=== PATIENT | female | born 1980 | race Caucasian/White ===

== ENCOUNTER 2019-08-06 14:03 | Emergency (ER) | payer OTHER, MEDICAID, SELFPAY ==
[2019-08-06 14:06] VITALS: BP 174/87; PULSE 88; RESP 15; TEMP 36.8; O2SAT 97; BMI 25.0
--- NOTE | 2019-08-06 14:10 | DI.RAD.S_ITS ---
PROCEDURE: XR RIBS RT MIN 3V W CXR 1V INDICATIONS: rib pain TECHNIQUE: 2 views of the right ribs were acquired, along with a single view chest. COMPARISON: None. FINDINGS: Surgical changes and devices: None. Bones and chest wall: No fractures or dislocations. No suspicious bony lesions. Overlying soft tissues appear unremarkable. Lungs and pleura: No pleural effusions or pneumothorax. Lungs appear clear. Mediastinum: Mediastinal contours appear normal. Heart size is normal. IMPRESSION: No obvious displaced rib fracture. No acute cardiopulmonary pathology. Dictated by: Alexis Wynn M.D. on 08/06/2019 at 14:32 Approved by: Alexis Wynn M.D. on 08/06/2019 at 14:32
[2019-08-06 14:30] LABS: Add Manual Diff / Slide Review NO; Basophils Absolute Auto 100 /uL (0-100); Basophils Percent Auto 1.2 % (0-2); Eosinophils Absolute Auto 100 /uL (0-450); Eosinophils Percent Auto 1.1 % (2-4); Hematocrit 40.6 % (36-46); Hemoglobin 14.3 g/dL (12.0-16.0); Lymphocytes Absolute Auto 2600 /uL (1100-4500); Lymphocytes Percent Auto 30.8 % (25-40); Mean Corpuscular HGB Conc 35.2 % (30-36); Mean Corpuscular Hemoglobin 33.3 PG (26-34); Mean Corpuscular Volume 94.4 fL (80-100); Monocytes Absolute Auto 400 /uL (0-900); Monocytes Percent Auto 5.4 % (3-14); Neutrophils Absolute Auto 5100 /uL (1500-7000); Neutrophils Percent Auto 61.5 % (50-75); Platelet Count 255 X10^3/uL (150-400); Red Cell Distribution Width 13.7 % (11.6-14.8); White Blood Cell Count 8.3 X10^3/uL (4.5-11.0)
[2019-08-06 14:36] LABS: INR 0.9 (0.9-1.3); Prothrombin Time 10.8 SECONDS (10.1-12.7)
[2019-08-06 14:38] LABS: PTT Partial Thromboplastin Tim 37 SECONDS (26.4-36.2)
[2019-08-06 14:50] LABS: Alanine Aminotransferase 52 IU/L (9-52); Albumin Globulin Ratio 1.5 (1.0-2.8); Alkaline Phosphatase 56 U/L (38-126); Aspartate Aminotransferase 43 IU/L (15-46); BUN Creatinine Ratio 21.7 (6-22); Bilirubin Total 0.9 mg/dL (0.2-1.3); Blood Urea Nitrogen 13 mg/dL (7-17); Calcium 9.3 mg/dL (8.4-10.2); Carbon Dioxide 25 mmol/L (22-32); Chloride 103 mmol/L (98-107); Estimated Glomerular Filt Rate > 60.0 mL/min (>60); Globulin 3.3 g/dL (1.7-4.1); Glucose 96 mg/dL (70-100); HEMOLYSIS < 15 (0-50); Lipase 134 U/L (23-300); Potassium 3.9 mmol/L (3.4-5.1); Sodium 137 mmol/L (137-145); Total Protein 8.3 g/dL (6.3-8.2)
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
--- NOTE | 2019-08-06 15:26 | DI.US.S_ITS ---
PROCEDURE: US ABDOMEN LIMITED INDICATIONS: RIGHT UPPER QUADRANT AND RIB PAIN TECHNIQUE: Real-time focused scanning was performed of the abdomen, with image documentation. COMPARISON: None. FINDINGS: Liver unremarkable and measures 15.1 cm in length. Gallbladder is normal. no sonographic Salas sign. No biliary dilatation. Pancreas obscured by shadowing bowel gas. Spleen unremarkable and measures 10.5 cm in length. IVC patent IMPRESSION: Unremarkable appearance of the gallbladder. Of note, pancreas obscured by shadowing bowel gas and therefore not sonographically evaluated. Dictated by: Troy Lilly M.D. on 08/06/2019 at 16:54 Approved by: Troy Lilly M.D. on 08/06/2019 at 16:56
[2019-08-06 15:40] LABS: D Dimer 337 ng/mL (<230)
--- NOTE | 2019-08-06 15:55 | DI.CT.S_ITS ---
PROCEDURE: CT ANGIO CHEST PE PROTOCOL INDICATIONS: R. CP, elevated d dimer TECHNIQUE: After the administration of intravenous contrast, 2 mm thick sections acquired from the pulmonary apices to the posterior costophrenic angles. 3-dimensional maximum intensity projection (MIP) coronal and sagittal reformats were then acquired through the thorax. For radiation dose reduction, the following was used: automated exposure control, adjustment of mA and/or kV according to patient size. COMPARISON: None. FINDINGS: Image quality: Excellent. Pulmonary arteries: Pulmonary arteries are normal in size, and demonstrate no intraluminal filling defects to suggest central pulmonary embolism. Lungs and pleura: Mild bilateral sub-pleural cystic change. Mild bibasilar dependent change. The No pleural effusions or pneumothorax. Central and peripheral airways are patent. Mediastinum: Heart size is normal, without pericardial effusion. No mediastinal or hilar adenopathy. Mildly prominent right perihilar lymph node. Thoracic aorta is normal in caliber and enhancement. Esophagus is normal in caliber, without hiatal hernia. Bones and chest wall: No suspicious bony lesions. Ribs and thoracic spine appear intact throughout. Thyroid gland is unremarkable. No axillary or supraclavicular adenopathy. Abdomen: Hepatomegaly. Focal fatty replacement of the liver near the ligamentum teres. Gallbladder is unremarkable. IMPRESSION: 1. No evidence of pulmonary emboli. 2. Hepatomegaly. Dictated by: Smith Durbin M.D. on 08/06/2019 at 16:55 Approved by: Smith Durbin M.D. on 08/06/2019 at 16:58
[2019-08-06 17:30] VITALS: BP 152/78; PULSE 48; RESP 23; O2SAT 100
[2019-08-06] MEDS: SODIUM CHLORIDE 0.9% 1,000 ML 1000 ML IV (17:37)
== END 2019-08-06 18:34 | disposition home or self-care (01) ==
PROVIDERS: Emergency Medicine; Emergency Provider Internal Medicine
DX: R07.81 Pleurodynia (principal); R10.11 Right upper quadrant pain; F10.10 Alcohol abuse, uncomplicated; V43.92XD Unspecified car occupant injured in collision with other type car in traffic accident, subsequent encounter
CPT/HCPCS: 36415; 71101; 71275; 76705; 80053; 81003; 81025; 83690; 85025; 85379; 85610; 85730; 99282; 99284; Q9967

== ENCOUNTER 2021-03-14 18:58 | Emergency (ER) | payer OTHER, MEDICAID, SELFPAY ==
[2021-03-14] VITALS (9 sets, daily range): BP systolic 127–204; BP diastolic 75–102; PULSE 87–121; RESP 19–25; TEMP 37.2; O2SAT 94–96; BMI 29.0
[2021-03-14] MEDS: ONDANSETRON 4 MG/2 ML INJ (19:22)
--- NOTE | 2021-03-14 19:57 | PC.NURSE ---
Reports reaction after eating shrimp Saturday, hives/itchy increased after scallops Saturday. Denies difficulty breathing/swallowing. Also concerned about alcohol withdrawal. Drinks a fifth a day. Visible tremors/sweaty.
--- NOTE | 2021-03-14 20:07 | ED.ALLEREA ---
HPI - Allergic Reaction General Chief complaint: Allergic Reaction Stated complaint: hives all over her body, shakey Time Seen by Provider: 03/14/21 19:04 Source: patient Mode of arrival: Ambulatory Limitations: no limitations History of Present Illness HPI narrative: 40-year-old female smoker presents with a supposed allergic reaction after eating shrimp few days ago. She has widespread redness, itching and hives but denies any swelling of tongue, lip, throat. She has had no trouble swallowing and no trouble breathing. She denies any abdominal pain or diarrhea. She has had no fever or chills and denies any new medications or other possible exposures. She does state that she drinks heavily daily and has no intention of quitting but did quit cold turkey a few days ago and is feeling a bit shakey. She denies any auditory or visual hallucinations. She is awake, alert and oriented and states that she intends to start drinking again later tonight. She understands of severe alcohol withdrawal can be but does not wish for any help with it currently. MD complaint: allergic reaction and hives Onset (ago): day(s) Exposure: food Symptoms: rash and itching Severity: moderate Treatment prior to arrival: none Previous Allergic Reaction History: none Related Data Previous Rx's Medication Instructions Recorded prednisone 20 mg PO DAILY #5 tab 03/14/21 Allergies Allergy/AdvReac Type Severity Reaction Status Date / Time No Known Drug Allergies Allergy Verified 08/06/19 14:05 Review of Systems Constitutional Constitutional: Denies chills, Denies fatigue, Denies fever(s), Denies frequent falls, Denies lethargy and Denies weakness Eyes Eyes: Denies change in vision, Denies eye discharge, Denies irritation and Denies loss of vision ENT Ears, Nose, Mouth, and Throat: Denies change in voice, Denies dizziness, Denies neck pain, Denies sore throat and Denies throat swelling Cardiovascular Cardiovascular: Denies chest pain, Denies irregular heart rhythm, Denies lightheadedness, Denies palpitations, Denies dyspnea, Denies dyspnea on exertion and Denies orthopnea Respiratory Respiratory: Denies cough, Denies dyspnea, Denies dyspnea on exertion and Denies wheezing Gastrointestinal Gastrointestinal: Denies abdominal pain, Denies change in bowel habits, Denies diarrhea, Denies nausea and Denies vomiting Musculoskeletal Musculoskeletal: Denies neck pain and Denies numbness Integumentary/Breasts Skin/Breast: Reports pruritus, Reports erythema, Reports rash and Denies wounds Neurologic Neurologic: Denies behavioral changes, Denies confusion, Denies dizziness, Denies frequent falls, Denies loss of vision, Denies numbness and Denies weakness Psychiatric Psychiatric: Denies anxiety, Denies behavioral changes, Denies confusion, Denies depression, Denies homicidal ideation and Denies suicidal ideation Endocrine Endocrine: Denies fatigue, Denies flushing and Denies palpitations Hematologic/Lymphatic Hematologic/Lymphatic: Denies easy bruising Allergic/Immunologic Allergic/Immunologic: Denies urticaria, Denies throat swelling and Denies wheezing Patient History Medical History Eczema Surgical History Status post ORIF of fracture of ankle Social History Smoking Status: Current every day smoker Smoking Status: Current every day smoker tobacco type: cigarettes alcohol intake frequency: 3 or more drinks per day Alcohol type: hard liquor Substance Use Type: marijuana Exam Narrative Exam Narrative: GENERAL: [40] year old patient appears stated age. Well-nourished, well-developed patient, in mild distress. A bit anxious and tremulous, alert and oriented, GCS 15 HEAD: Atraumatic. Normocephalic. EYES: Pupils equal round and reactive. Extraocular motions intact. No scleral icterus. No injection or drainage. ENT: Nose without bleeding, purulent drainage. Throat without erythema, tonsillar hypertrophy or exudate. Airway patent. NECK: Trachea midline. Non tender CARDIOVASCULAR: Regular rate and rhythm without murmurs, gallops, or rubs. RESPIRATORY: Clear to auscultation. Breath sounds equal bilaterally. No wheezes, rales, or rhonchi. GASTROINTESTINAL: Abdomen soft, non-tender, nondistended. EXTREMITIES: No edema or joint tenderness. BACK: Nontender without deformity or crepitance. No flank tenderness. NEURO: AOx3. SKIN: Widespread erythematous, pruritic maculopapular rash Initial Vital Signs Initial Vital Signs: Vital Signs Temperature 98.9 F 03/14/21 19:05 Pulse Rate 121 H 03/14/21 19:05 Respiratory Rate 24 03/14/21 19:05 Blood Pressure 148/102 H 03/14/21 19:05 Pulse Oximetry 95 03/14/21 19:05 Course Orders Ordered: ED Orders 03/14/21 19:15 Complete Blood Count AUTO DIFF Stat Comprehensive Metabolic Panel Stat Discontinued Medications Diphenhydramine HCl (Diphenhydramine 50 Mg/Ml Vial) 50 mg IV NOW ONE Stop: 03/14/21 20:52 Last Admin: 03/14/21 21:01 Dose: 50 mg Documented by: LIONEL Sodium Chloride (Normal Saline 0.9%) 1,000 mls @ 1,000 mls/hr IV BOLUS ONE Stop: 03/14/21 21:06 Last Infusion: 03/14/21 21:43 Dose: 0 mls/hr Documented by: Admin: 03/14/21 20:16 Dose: 1,000 mls/hr Documented by: ROMERO Famotidine (Pepcid) 20 mg in 50 mls @ 200 mls/hr IV NOW ONE Stop: 03/14/21 21:05 Last Infusion: 03/14/21 21:16 Dose: 0 mls/hr Documented by: Admin: 03/14/21 21:01 Dose: 200 mls/hr Documented by: LIONEL Methylprednisolone (Methylprednisolone 125 Mg/2 Ml Vial) 125 mg IV NOW ONE Stop: 03/14/21 20:52 Last Admin: 03/14/21 21:02 Dose: 125 mg Documented by: LIONEL Reevaluation(s) Reevaluation #1: Patient has significant improvement symptoms after above-stated therapies Vital Signs Vital signs: Vital Signs - 8 hr 03/14/21 19:05 03/14/21 19:20 03/14/21 19:30 Temperature 98.9 F Pulse Rate 121 H 95 H 95 H Respiratory Rate 24 22 Blood Pressure 148/102 H 138/90 Pulse Oximetry 95 96 95 03/14/21 20:00 03/14/21 20:30 03/14/21 21:00 Temperature Pulse Rate 93 H 96 H 96 H Respiratory Rate 21 21 25 H Blood Pressure 127/84 132/86 134/75 Pulse Oximetry 94 94 94 03/14/21 21:26 03/14/21 21:30 03/14/21 21:31 Temperature Pulse Rate 95 H 87 89 Respiratory Rate 20 21 19 Blood Pressure 204/91 H 147/75 H Pulse Oximetry 96 96 96 MDM - Allergic Reaction Lab Data Result diagrams: 03/14/21 19:15 03/14/21 19:15 Labs: Lab Results 03/14/21 03/14/21 Range/Units 19:15 19:15 WBC 12.3 H (4.5-11.0) X10^3/uL RBC 4.68 (4.0-5.2) X10^6/uL Hgb 15.6 (12.0-16.0) g/dL Hct 45.7 (36-46) % MCV 97.6 (80-100) fL MCH 33.3 (26-34) PG MCHC 34.2 (30-36) % RDW 17.2 H (11.6-14.8) % Plt Count 227 (150-400) X10^3/uL Neut % (Auto) 83.3 H (50-75) % Lymph % (Auto) 13.4 L (25-40) % [place] % (Auto) 2.7 L (3-14) % Eos % (Auto) 0.1 L (2-4) % Baso % (Auto) 0.5 (0-2) % Neut # (Auto) 91252 H (6134-3902) /uL Lymph # (Auto) 1600 (8712-4783) /uL [place] # (Auto) 300 (0-900) /uL Eos # (Auto) 0 (0-450) /uL Baso # (Auto) 100 (0-100) /uL Sodium 135 L (137-145) mmol/L Potassium 3.3 L (3.4-5.1) mmol/L Chloride 97 L (98-107) mmol/L Carbon Dioxide 24 (22-32) mmol/L BUN 15 (7-17) mg/dL Creatinine 0.55 (0.52-1.04) mg/dL Estimated GFR > 60.0 (>60) mL/min BUN/Creatinine Ratio 27.3 H (6-22) Glucose 133 H (70-100) mg/dL Calcium 10.0 (8.4-10.2) mg/dL Total Bilirubin 1.2 (0.2-1.3) mg/dL AST 46 H (14-36) IU/L ALT 44 H (<35) IU/L Alkaline Phosphatase 66 (38-126) U/L Total Protein 7.6 (6.3-8.2) g/dL Albumin 4.7 (3.5-5.0) g/dL Globulin 2.9 (1.7-4.1) g/dL Albumin/Globulin Ratio 1.6 (1.0-2.8) Urine Dip Bedside Urine Glucose Negative Bedside Urine Bilirubin - Negative Bedside Urine Ketone +++ 80 Urine Specific [place] 1.015 Bedside Urine Occult Blood - Negative Bedside Urine pH 8.0 Bedside Urine Protein + 30 Bedside Urine Urobilinogen - Negative Bedside Urine Nitrite - Negative Bedside Urine Leukocytes - Negative Esterase MDM Narrative Medical decision making narrative: Patient with allergic type symptoms after exposure to shrimp for which she think she has an allergy. No signs of anaphylaxis, no tongue, lip or throat swelling and no trouble breathing. She has significant improvement after above-stated therapies. She does show mild symptoms of withdrawal but refuses to pursue or discuss this, wants no help in the form of benzos or other therapies stating that she intends to start drinking and tonight. She does understand that quitting without the help of a medical provider can be life-threatening. She has been given return precautions and has had questions answered to her apparent satisfaction Discharge Plan Departure Patient Disposition: Home Clinical Impression: Allergic reaction Qualifiers: Encounter type: initial encounter Qualified Code(s): T78.40XA - Allergy, unspecified, initial encounter Instructions: DI for General Allergic Reactions Activity Restrictions/Additional Instructions: *You have been diagnosed with [allergic reaction] *What to do: *Please continue to take your regular medications as directed. [x ] New medication prescriptions sent to your pharmacy: [[facility] ] [x ] New Over the Counter medication as described including Benadryl and Pepcid to help with redness and itching [ ] No new medications given *Please follow up with your primary care provider in 2-3 days, call for an appointment. Let them know you were seen in the Emergency Department and that we ask that you be seen in follow up. We will electronically transmit a record of today's note if your PCP is in our system *If you do not have a primary care provider please contact the [facility] Resource line at [phone]. They will ask some questions about your medical history and help get you set up with a doctor in the community. *Return to Emergency Department if you should have any new, worsening or concerning symptoms, such as [fever greater than 101 F, shaking chills, worsening pain, persistent vomiting or other bothersome symptoms] Prescriptions: New prednisone 20 mg tablet 20 mg PO DAILY Qty: 5 RF: 0
[2021-03-14] MEDS: SODIUM CHLORIDE 0.9% 1,000 ML 1000 ML IV (20:16)
[2021-03-14 20:17] LABS: Add Manual Diff / Slide Review NO; Basophils Absolute Auto 100 /uL (0-100); Basophils Percent Auto 0.5 % (0-2); Eosinophils Absolute Auto 0 /uL (0-450); Eosinophils Percent Auto 0.1 % (2-4); Hematocrit 45.7 % (36-46); Hemoglobin 15.6 g/dL (12.0-16.0); Lymphocytes Absolute Auto 1600 /uL (1100-4500); Lymphocytes Percent Auto 13.4 % (25-40); Mean Corpuscular HGB Conc 34.2 % (30-36); Mean Corpuscular Hemoglobin 33.3 PG (26-34); Mean Corpuscular Volume 97.6 fL (80-100); Monocytes Absolute Auto 300 /uL (0-900); Monocytes Percent Auto 2.7 % (3-14); Neutrophils Absolute Auto 10200 /uL (1500-7000); Neutrophils Percent Auto 83.3 % (50-75); Platelet Count 227 X10^3/uL (150-400); Red Blood Cell Count 4.68 X10^6/uL (4.0-5.2); Red Cell Distribution Width 17.2 % (11.6-14.8); White Blood Cell Count 12.3 X10^3/uL (4.5-11.0)
[2021-03-14 20:23] LABS: Alanine Aminotransferase 44 IU/L (<35); Albumin 4.7 g/dL (3.5-5.0); Albumin Globulin Ratio 1.6 (1.0-2.8); Alkaline Phosphatase 66 U/L (38-126); Aspartate Aminotransferase 46 IU/L (14-36); BUN Creatinine Ratio 27.3 (6-22); Bilirubin Total 1.2 mg/dL (0.2-1.3); Blood Urea Nitrogen 15 mg/dL (7-17); Carbon Dioxide 24 mmol/L (22-32); Chloride 97 mmol/L (98-107); Estimated Glomerular Filt Rate > 60.0 mL/min (>60); Globulin 2.9 g/dL (1.7-4.1); Glucose 133 mg/dL (70-100); HEMOLYSIS < 15 (0-50); Potassium 3.3 mmol/L (3.4-5.1); Sodium 135 mmol/L (137-145); Total Protein 7.6 g/dL (6.3-8.2)
[2021-03-14] MEDS: FAMOTIDINE 20 MG/50 ML PIGGYBACK 200 MG IV (21:01)
[2021-03-14] MEDS: diphenhydrAMINE 50 MG/ML VIAL IV (21:01)
[2021-03-14] MEDS: methylPREDNISolone 125 MG/2 ML VIAL IV (21:02)
== END 2021-03-14 21:53 | disposition home or self-care (01) ==
PROVIDERS: Emergency Provider Emergency Medicine
DX: L50.9 Urticaria, unspecified (principal); T78.40XA Allergy, unspecified, initial encounter
CPT/HCPCS: 36415; 80053; 81003; 85025; 96361; 96374; 96375; 99284; J1200; J2405; J2930

== ENCOUNTER 2022-04-30 08:22 | Inpatient (IN) | payer OTHER, MEDICAID, SELFPAY ==
[2022-04-30] VITALS (17 sets, daily range): BP systolic 157–206; BP diastolic 99–131; PULSE 60–99; RESP 16–28; TEMP 36.2–37.7; O2SAT 90–99; BMI 37.7
--- NOTE | 2022-04-30 08:29 | DI.RAD.S_ITS ---
PROCEDURE: XR CHEST 1V INDICATIONS: chest pain TECHNIQUE: One view of the chest was acquired. COMPARISON: None. FINDINGS: Surgical changes and devices: None. Lungs and pleura: Lung volumes are low. There is diffuse interstitial prominence. No pleural effusion or pneumothorax. Mediastinum: Mediastinal contours appear normal. Heart size is normal. Bones and chest wall: No suspicious bony lesions. Overlying soft tissues appear unremarkable. IMPRESSION: Low lung volumes and interstitial prominence suggesting pulmonary edema. Dictated by: Ximena Oseguera M.D. on 04/30/2022 at 10:22 Approved by: Ximena Oseguera M.D. on 04/30/2022 at 10:22
--- NOTE | 2022-04-30 08:31 | ED.ABDPAIN ---
HPI - Abdominal Pain General Chief Complaint: Abdominal Pain Stated Complaint: pancreas Time Seen by Provider: 04/30/22 08:25 History of Present Illness HPI narrative: Patient is a 41-year-old female history of pancreatitis she is an alcoholic however she says she only had 1 beer 2 days ago. Yesterday she was doing well however this morning woke up with severe epigastric pain. She is diaphoretic and vomiting. He says this feels like her previous episode of pancreatitis. She has no history of gallbladder issues. Related Data Home Medications Medication Instructions Recorded Confirmed No Known Home Medications 04/30/22 04/30/22 Allergies Allergy/AdvReac Type Severity Reaction Status Date / Time shellfish derived Allergy Verified 04/30/22 11:54 Review of Systems Review of Systems Narrative: GENERAL: Denies chills, fatigue, malaise, fever, sweats, travel HEENT: Denies sinus pain, ear pain, sore throat, difficulty swallowing, neck pain RESPIRATORY: Denies dyspnea, cough, wheezing, hemoptysis, sputum. CARDIOVASCULAR: Denies chest pain, palpitations, orthopnea, edema GASTROINTESTINAL: See HPI : Denies dysuria, frequency, incontinence, hematuria, urinary retention, flank pain. MUSCULOSKELETAL: Denies weakness, joint pain, or bony pain SKIN: No rash, no erythema, no pruritus NEUROLOGIC: Denies weakness, dizziness, headache, numbness, change in speech, confusion PSYCHIATRIC: No concerning psychosocial issues. 12 point review of systems is negative except for those stated above and HPI Patient History Medical History Eczema Surgical History Status post ORIF of fracture of ankle Social History household members: significant other Smoking Status: Current every day smoker Smoking Status: Current every day smoker tobacco type: cigarettes alcohol intake frequency: 3 or more drinks per day Alcohol type: hard liquor Substance Use Type: marijuana Exam Initial Vital Signs Initial Vital Signs: Vital Signs Pulse Rate 99 H 04/30/22 08:26 Pulse Oximetry 97 04/30/22 08:26 GENERAL: Alert 41-year-old female diaphoretic appears in severe pain dry heaving and in no acute distress. HEENT: Head atraumatic,EOMI, pupils reactive, face symmetric, moist mucous membranes CARDIOVASCULAR: Regular rate and rhythm without murmurs, rubs or gallops. RESPIRATORY: Breath sounds equal bilaterally, no wheezes rales or rhonchi. ABDOMEN: Soft, epigastric pain guarding no rebound minimal right upper quadrant pain EXTREMITIES: Normal range of motion, no clubbing or edema. Neurovascularly intact NEUROLOGICAL: Alert and oriented x4.Normal gait and speech. SKIN: Warm, dry, no laceration, no petechiae, no rashes or lesions. Course Orders Ordered: Acetaminophen (Acetaminophen 325 Mg Tablet) 650 mg PO Q6HR PRN PRN Reason: Fever/Mild Pain (1-3) Folic Acid (Folic Acid 1 Mg Tablet) 1 mg PO DAILY RONIT Hydromorphone HCl (Hydromorphone 1 Mg Inj) 1 mg IV Q3H PRN PRN Reason: Pain, Moderate (4-6) Last Admin: 04/30/22 18:07 Dose: 1 mg Documented By: Admin: 04/30/22 15:21 Dose: 1 mg Documented By: TLS Lactated Ringer's (Lactated Ringers) 1,000 mls @ 100 mls/hr IV CONT RONIT Last Admin: 04/30/22 17:54 Dose: 100 mls/hr Documented By: TLS Dextrose (D10w) 250 mls @ 999 mls/hr IV PRN PRN PRN Reason: Hypoglycemia Insulin Human Lispro (Insulin Lispro 100 Unit/Ml 3ml Vial) 0 unit SUBCUT ACHS RONIT; Protocol Last Admin: 04/30/22 17:24 Dose: Not Given Documented By: TLS Lorazepam (Lorazepam 2 Mg/Ml Inj) 0 mg IV CIWAPRN PRN; Protocol PRN Reason: Alcohol Withdrawal Multivitamins (Multivitamin 1 Tablet) 1 tab PO DAILY [facility] Ondansetron HCl (Ondansetron 4 Mg/2 Ml Inj) 4 mg IV Q8HR PRN PRN Reason: Nausea And Vomiting Oxycodone HCl (Oxycodone Ir 5 Mg Tablet) 5 mg PO Q3HR PRN PRN Reason: Pain, Moderate (4-6) Pantoprazole Sodium (Pantoprazole 40 Mg Vial) 40 mg IV DAILY RONIT Thiamine HCl (Thiamine 100 Mg Tablet) 100 mg PO DAILY [facility] Stop: 05/04/22 09:01 Discontinued Medications Hydromorphone HCl (Hydromorphone 1 Mg Inj) 1 mg IV NOW ONE Stop: 04/30/22 08:29 Last Admin: 04/30/22 08:38 Dose: 1 mg Documented By: CTS Hydromorphone HCl (Hydromorphone 1 Mg Inj) 1 mg IV NOW ONE Stop: 04/30/22 09:27 Last Admin: 04/30/22 09:31 Dose: 1 mg Documented By: NIMA Hydromorphone HCl (Hydromorphone 2 Mg Inj) 2 mg IV Q3H PRN PRN Reason: Pain, Severe (7-10) Sodium Chloride (Normal Saline 0.9%) 1,000 mls @ 1,000 mls/hr IV CONT RONIT Last Infusion: 04/30/22 09:39 Dose: 0 mls/hr Documented By: Admin: 04/30/22 08:38 Dose: 1,000 mls/hr Documented By: TAMIKA Sodium Chloride (Normal Saline 0.9%) 1,000 mls @ 200 mls/hr IV CONT RONIT Last Admin: 04/30/22 12:40 Dose: 200 mls/hr Documented By: Infusion: 04/30/22 12:40 Dose: 200 mls/hr Documented By: Infusion: 04/30/22 12:15 Dose: 200 mls/hr Documented By: Admin: 04/30/22 09:41 Dose: 200 mls/hr Documented By: NIMA Sodium Chloride (Normal Saline 0.9%) 1,000 mls @ 100 mls/hr IV CONT RONIT Ketamine HCl (Ketamine 500 Mg/5 Ml Inj) 10.6005 mg 0.1 mg/kg (10.6005 mg) IV NOW ONE Stop: 04/30/22 11:31 Last Admin: 04/30/22 11:42 Dose: 10.6005 mg Documented By: NIMA Ketorolac Tromethamine (Ketorolac 30 Mg/Ml Vial) 15 mg IV NOW ONE Stop: 04/30/22 10:36 Last Admin: 04/30/22 10:44 Dose: 15 mg Documented By: NIMA Lorazepam (Lorazepam 2 Mg/Ml Inj) 0.5 mg IV NOW ONE Stop: 04/30/22 09:27 Last Admin: 04/30/22 10:44 Dose: Not Given Documented By: NIMA Ondansetron HCl (Ondansetron 4 Mg/2 Ml Inj) 4 mg IV NOW ONE Stop: 04/30/22 08:29 Last Admin: 04/30/22 08:38 Dose: 4 mg Documented By: TAMIKA Pantoprazole Sodium (Pantoprazole 40 Mg Vial) 40 mg IV NOW ONE Stop: 04/30/22 10:36 Last Admin: 04/30/22 10:44 Dose: 40 mg Documented By: NIMA Vital Signs Vital signs: Vital Signs - 8 hr 04/30/22 08:29 04/30/22 08:26 04/30/22 08:30 Temperature 99.9 F H Pulse Rate 93 H 99 H 77 Respiratory Rate 28 H Blood Pressure 187/122 H Pulse Oximetry 99 97 97 Oxygen Delivery Method Room Air 04/30/22 08:40 04/30/22 08:40 04/30/22 09:00 Temperature Pulse Rate 75 Respiratory Rate Blood Pressure 187/122 H 196/131 H Pulse Oximetry 92 Oxygen Delivery Method 04/30/22 09:00 04/30/22 09:30 04/30/22 09:30 Temperature Pulse Rate 79 66 Respiratory Rate Blood Pressure 206/123 H Pulse Oximetry 96 97 Oxygen Delivery Method 04/30/22 09:39 04/30/22 09:39 Temperature Pulse Rate 77 Respiratory Rate Blood Pressure 200/120 H Pulse Oximetry 94 Oxygen Delivery Method MDM - Abdominal Pain Lab Data Result diagrams: 04/30/22 17:34 04/30/22 17:34 Labs: Lab Results 04/30/22 04/30/22 04/30/22 Range/Units 08:31 08:31 09:46 WBC 10.9 (4.5-11.0) X10^3/uL RBC 4.78 (4.0-5.2) X10^6/uL Hgb 16.6 H (12.0-16.0) g/dL Hct 46.5 H (36-46) % MCV 97.2 (80-100) fL MCH 34.6 H (26-34) PG MCHC 35.6 (30-36) % RDW 15.6 H (11.6-14.8) % Plt Count 246 (150-400) X10^3/uL Neut % (Auto) 65.4 (50-75) % Lymph % (Auto) 26.2 (25-40) % [place] % (Auto) 5.2 (3-14) % Eos % (Auto) 2.4 (2-4) % Baso % (Auto) 0.8 (0-2) % Neut # (Auto) 7100 H (2394-2578) /uL Lymph # (Auto) 2900 (6399-1460) /uL [place] # (Auto) 600 (0-900) /uL Eos # (Auto) 300 (0-450) /uL Baso # (Auto) 100 (0-100) /uL Sodium 134 L (137-145) mmol/L Potassium 3.6 (3.4-5.1) mmol/L Chloride 98 (98-107) mmol/L Carbon Dioxide 18 L (22-32) mmol/L BUN 14 (7-17) mg/dL Creatinine 0.72 (0.52-1.04) mg/dL Estimated GFR > 60 (>60) mL/min BUN/Creatinine Ratio 19.4 (6-22) Glucose 215 H (70-100) mg/dL Calcium 9.4 (8.4-10.2) mg/dL Total Bilirubin 1.5 H (0.2-1.3) mg/dL AST 64 H (14-36) IU/L ALT 66 H (<35) IU/L Alkaline Phosphatase 88 (38-126) U/L Total Creatine Kinase 50 (30-135) U/L CK-MB (CK-2) TNP CK-MB (CK-2) Rel Index TNP Troponin I < 0.012 (0.01-0.034) ng/mL Total Protein 8.6 H (6.3-8.2) g/dL Albumin 5.2 H (3.5-5.0) g/dL Globulin 3.4 (1.7-4.1) g/dL Albumin/Globulin Ratio 1.5 (1.0-2.8) Lipase 9392 H (23-300) U/L SARS-CoV-2 (PCR) Negative (Negative) Imaging Data US - abdomen: Radiologist's Impression: Signed Patient: Elo Mondragon MR#: [id number] : 1980 Acct:[id number] Age/Sex: 41 / F Date of Service: 04/30/22 Loc: ED Accession Number: [id number] ?? Procedure: US abdomen limited Ordering Provider: Crystal Guy D.O. PROCEDURE:? US ABDOMEN LIMITED ? INDICATIONS:? RIGHT UPPER QUADRANT PAIN ? TECHNIQUE:? Real-time scanning was performed of the abdominal and retroperitoneal organs, with image documentation.? ? COMPARISON:? [facility], , US ABDOMEN LIMITED, 08/06/2019, 16:10. ? FINDINGS:? ? Liver:? Mild hepatomegaly.? The liver demonstrates diffusely increased echotexture without focal abnormalities consistent with chronic hepatocellular disease/hepatic steatosis.? The main portal vein could not be interrogated secondary to patient scanning characteristics and presence of moderate hepatic steatosis. ? Gallbladder:? Gallbladder is normal in sonographic appearance without gallstones, gallbladder wall thickening, pericholecystic fluid, or abnormal sonographic Salas's.? ? Biliary ducts:? Intrahepatic bile ducts are non-dilated.? Extrahepatic bile duct caliber measures 8.5 mm.? Normal is 6-7 mm or less in diameter, or 10 mm or less post-cholecystectomy.? No evidence for obstructing mass or stone. ? Pancreas:? Visualized portions of the pancreas are sonographically normal.? Visualized body and tail not well seen secondary to bowel gas.? ? Miscellaneous:? No free abdominal fluid.? ? ? IMPRESSION:? Hepatomegaly with hepatic steatosis.? No focal intrahepatic abnormality seen. ? Unremarkable sonographic evaluation of the gallbladder without evidence for cholelithiasis or acute cholecystitis.? Prominent common bile duct measuring 8.5 mm.? No evidence for obstructing mass or choledocholithiasis. ? ? ? Dictated by: Jose Callahan M.D. on 04/30/2022 at 9:44 ? ? CT scan - abdomen/pelvis: Radiologist's Impression: JOSEFI[facility] Barra[facility] [id number] CT Scan Report Signed Patient: Elo Mondragon MR#: [id number] : 1980 Acct:[id number] Age/Sex: 41 / F Date of Service: 04/30/22 Loc: 206-1 Accession Number: [id number] ?? Procedure: CT abdomen pelvis w con Ordering Provider: Crystal Guy D.O. PROCEDURE:? CT ABDOMEN PELVIS W CON ? INDICATIONS:? Abdominal pain; pancreatitis. ? TECHNIQUE:? After the administration of oral and IV contrast, axial sections were acquired from the lung bases to the pubic symphysis.? Coronal and sagittal reformats were performed.? For radiation dose reduction, the following was used:? automated exposure control, adjustment of mA and/or kV according to patient size. ? COMPARISON:? [facility], , ABDOMEN LIMITED, 04/30/2022, 9:52. ? FINDINGS:? Image quality:? Excellent.? ? Lung bases:? There is a 0.6 cm nodule in the inferior right upper lobe, partially visualized.? Bibasilar atelectasis.? ? Heart:? No significant findings. ? ? ABDOMEN: Liver:? Liver is moderately enlarged.? There is severe hepatic steatosis. Gallbladder:? There is a prominent soft tissue edema and complex fluid collection around pancreas consistent with acute pancreatitis.? There is no pancreatic duct dilation or pancreatic calcification.? No pseudocyst.? ? Biliary ducts:? Unremarkable.? ? Pancreas:? Unremarkable.? ? Spleen:? Unremarkable.? ? Adrenal Glands:? Unremarkable.? ? Kidneys and Ureters:? Unremarkable.? ? ? Stomach and Bowel:? Stomach, small bowel loops, and colon are unremarkable.? Peritoneum:? No abnormal intraperitoneal fluid.? No free air.? ? Ventral Wall: ? No hernia.? Abdominal Nodes:? No retroperitoneal or mesenteric adenopathy by size criteria.? Vessels:? Aorta and inferior vena cava are normal in size.? ? PELVIS: Pelvic Organs:? Uterus is normal.? There is a 2 cm cyst in the right ovary, compatible with a dominant ovarian follicle. Bladder:? Unremarkable.? ? Pelvic Nodes: No enlarged lymph nodes.? Miscellaneous: No inguinal hernias are seen. ? ? ? Bones:? Unremarkable.? IMPRESSION:? ? 1. Acute pancreatitis.? No CT findings for pancreatic necrosis.? No pancreatic duct dilation or pancreatic pseudocysts. ? 2. Hepatomegaly and severe hepatic steatosis. ? 3. Partial visualization of a 0.6 cm nodule in the right upper lobe.? Recommend a nonurgent follow-up chest CT for further evaluation.? Dictated by: Milad Cabrales M.D. on 04/30/2022 at 11:26 ? ? Approved by: Milad Cabrales M.D. on 04/30/2022 at 11:4 ECG Data Interpretation: Normal sinus rhythm rate 80 T-wave inversion noted in V1 and V2 no ST changes no priors to compare MDM Narrative Medical decision making narrative: Patient is in severe pain found to have acute pancreatitis with a lipase of 9000. Both ultrasound and CT are negative. No sign of necrotizing pancreatitis or gallstone pancreatitis this is likely alcohol induced. She does some T-wave inversions in her EKG however troponin is negative. Dr. Hines accepts patient. Discharge Plan Departure Patient Disposition: Admitted As Inpatient Clinical Impression: Pancreatitis Admit Date/Time: 04/30/22 11:29 Admit Provider: Libby Hines
[2022-04-30] MEDS: ONDANSETRON 4 MG/2 ML INJ IV (08:38)
[2022-04-30] MEDS: HYDROMORPHONE 1 MG INJ IV ×5 (08:38→21:33)
[2022-04-30] MEDS: SODIUM CHLORIDE 0.9% 1,000 ML 1000 ML IV (08:38)
[2022-04-30 08:39] LABS: Basophils Absolute Auto 100 /uL (0-100); Basophils Percent Auto 0.8 % (0-2); Monocytes Absolute Auto 600 /uL (0-900)
--- NOTE | 2022-04-30 08:41 | DI.US.S_ITS ---
PROCEDURE: US ABDOMEN LIMITED INDICATIONS: RIGHT UPPER QUADRANT PAIN TECHNIQUE: Real-time scanning was performed of the abdominal and retroperitoneal organs, with image documentation. COMPARISON: [facility], , US ABDOMEN LIMITED, 08/06/2019, 16:10. FINDINGS: Liver: Mild hepatomegaly. The liver demonstrates diffusely increased echotexture without focal abnormalities consistent with chronic hepatocellular disease/hepatic steatosis. The main portal vein could not be interrogated secondary to patient scanning characteristics and presence of moderate hepatic steatosis. Gallbladder: Gallbladder is normal in sonographic appearance without gallstones, gallbladder wall thickening, pericholecystic fluid, or abnormal sonographic Salas's. Biliary ducts: Intrahepatic bile ducts are non-dilated. Extrahepatic bile duct caliber measures 8.5 mm. Normal is 6-7 mm or less in diameter, or 10 mm or less post-cholecystectomy. No evidence for obstructing mass or stone. Pancreas: Visualized portions of the pancreas are sonographically normal. Visualized body and tail not well seen secondary to bowel gas. Miscellaneous: No free abdominal fluid. IMPRESSION: Hepatomegaly with hepatic steatosis. No focal intrahepatic abnormality seen. Unremarkable sonographic evaluation of the gallbladder without evidence for cholelithiasis or acute cholecystitis. Prominent common bile duct measuring 8.5 mm. No evidence for obstructing mass or choledocholithiasis. Dictated by: Jose Callahan M.D. on 04/30/2022 at 9:44 Approved by: Jose Callahan M.D. on 04/30/2022 at 9:47
[2022-04-30 08:42] LABS: Add Manual Diff / Slide Review NO; Eosinophils Absolute Auto 300 /uL (0-450); Eosinophils Percent Auto 2.4 % (2-4); Hematocrit 46.5 % (36-46); Hemoglobin 16.6 g/dL (12.0-16.0); Lymphocytes Absolute Auto 2900 /uL (1100-4500); Lymphocytes Percent Auto 26.2 % (25-40); Mean Corpuscular HGB Conc 35.6 % (30-36); Mean Corpuscular Hemoglobin 34.6 PG (26-34); Mean Corpuscular Volume 97.2 fL (80-100); Monocytes Percent Auto 5.2 % (3-14); Neutrophils Absolute Auto 7100 /uL (1500-7000); Neutrophils Percent Auto 65.4 % (50-75); Platelet Count 246 X10^3/uL (150-400); Red Blood Cell Count 4.78 X10^6/uL (4.0-5.2); Red Cell Distribution Width 15.6 % (11.6-14.8); White Blood Cell Count 10.9 X10^3/uL (4.5-11.0)
[2022-04-30 08:59] LABS: Alanine Aminotransferase 66 IU/L (<35); Albumin 5.2 g/dL (3.5-5.0); Albumin Globulin Ratio 1.5 (1.0-2.8); Alkaline Phosphatase 88 U/L (38-126); Aspartate Aminotransferase 64 IU/L (14-36); BUN Creatinine Ratio 19.4 (6-22); Bilirubin Total 1.5 mg/dL (0.2-1.3); Blood Urea Nitrogen 14 mg/dL (7-17); Calcium 9.4 mg/dL (8.4-10.2); Carbon Dioxide 18 mmol/L (22-32); Chloride 98 mmol/L (98-107); Creatine Kinase 50 U/L (30-135); Estimated Glomerular Filt Rate > 60 mL/min (>60); Globulin 3.4 g/dL (1.7-4.1); Glucose 215 mg/dL (70-100); HEMOLYSIS < 15 (0-50); Potassium 3.6 mmol/L (3.4-5.1); Sodium 134 mmol/L (137-145); Total Protein 8.6 g/dL (6.3-8.2)
[2022-04-30 09:11] LABS: Troponin I < 0.012 ng/mL (0.01-0.034)
[2022-04-30 09:23] LABS: Lipase 9392 U/L (23-300)
--- NOTE | 2022-04-30 09:40 | DI.CT.S_ITS ---
PROCEDURE: CT ABDOMEN PELVIS W CON INDICATIONS: Abdominal pain; pancreatitis. TECHNIQUE: After the administration of oral and IV contrast, axial sections were acquired from the lung bases to the pubic symphysis. Coronal and sagittal reformats were performed. For radiation dose reduction, the following was used: automated exposure control, adjustment of mA and/or kV according to patient size. COMPARISON: [facility], , ABDOMEN LIMITED, 04/30/2022, 9:52. FINDINGS: Image quality: Excellent. Lung bases: There is a 0.6 cm nodule in the inferior right upper lobe, partially visualized. Bibasilar atelectasis. Heart: No significant findings. ABDOMEN: Liver: Liver is moderately enlarged. There is severe hepatic steatosis. Gallbladder: There is a prominent soft tissue edema and complex fluid collection around pancreas consistent with acute pancreatitis. There is no pancreatic duct dilation or pancreatic calcification. No pseudocyst. Biliary ducts: Unremarkable. Pancreas: Unremarkable. Spleen: Unremarkable. Adrenal Glands: Unremarkable. Kidneys and Ureters: Unremarkable. Stomach and Bowel: Stomach, small bowel loops, and colon are unremarkable. Peritoneum: No abnormal intraperitoneal fluid. No free air. Ventral Wall: No hernia. Abdominal Nodes: No retroperitoneal or mesenteric adenopathy by size criteria. Vessels: Aorta and inferior vena cava are normal in size. PELVIS: Pelvic Organs: Uterus is normal. There is a 2 cm cyst in the right ovary, compatible with a dominant ovarian follicle. Bladder: Unremarkable. Pelvic Nodes: No enlarged lymph nodes. Miscellaneous: No inguinal hernias are seen. Bones: Unremarkable. IMPRESSION: 1. Acute pancreatitis. No CT findings for pancreatic necrosis. No pancreatic duct dilation or pancreatic pseudocysts. 2. Hepatomegaly and severe hepatic steatosis. 3. Partial visualization of a 0.6 cm nodule in the right upper lobe. Recommend a nonurgent follow-up chest CT for further evaluation. Dictated by: Milad Cabrales M.D. on 04/30/2022 at 11:26 Approved by: Milad Cabrales M.D. on 04/30/2022 at 11:47
[2022-04-30] MEDS: SODIUM CHLORIDE 0.9% 1,000 ML 200 ML IV ×2 (09:41→12:40)
[2022-04-30 10:06] LABS: COVID19 -Nasal RAPID Negative (Negative)
[2022-04-30] MEDS: PANTOPRAZOLE 40 MG VIAL IV (10:44)
[2022-04-30] MEDS: KETOROLAC 30 MG/ML VIAL 15 MG IV (10:44)
[2022-04-30] MEDS: KETAMINE 500 MG/5 ML INJ 10.6005 MG IV (11:42)
--- NOTE | 2022-04-30 15:49 | PM.HP.1 ---
History of Present Illness History of Present Illness Date Patient Seen: 04/30/22 Chief complaint: pancreas Narrative: 41-year-old female with alcohol dependence, prior pancreatitis, and history of eczema as well as prior ORIF of the ankle who presented to the emergency department today complaining of abdominal pain. She has been drinking minimally but did have 1 beer 2 days prior to admission. She woke up this morning, got in the shower and when bending down to shave, she developed severe epigastric pain. She was sweaty and nauseated as well as vomiting. Reports this felt very similar to her previous episode of pancreatitis. In the ED she was noted to have a low-grade fever of 99.9, it was tachycardic to 99 and blood pressure was 187/122. Blood pressure subsequently increased to 206/123. Labs revealed a white blood cell count of 10.9, hemoglobin 16.6, hematocrit 46.5, platelets 246. Chemistry panel revealed a sodium 134 potassium 3.6 creatinine 0.72, glucose of 215. LFTs revealed an AST of 64, ALT 66, alk-phos was normal at 88, total bilirubin 1.5. Troponin was negative. Lipase 9392. COVID was negative. She was given IV fluids, IV Dilaudid, and abdominal ultrasound was performed which revealed hepatomegaly with hepatic steatosis. Difficult visualization of the pancreas. Subsequently she Underwent CT of the abdomen and pelvis which revealed acute pancreatitis without pancreatic necrosis, pseudocyst or duct dilatation. Hepatomegaly was noted as well as severe hepatic steatosis. There is partial visualization of a 0.6 cm nodule in the right upper lobe with recommendation for follow-up chest CT. Admission was recommended for management of her pancreatitis. Patient is currently complaining of fairly severe abdominal pain. She states this episode is different from prior. She states she has probably had fiber 6 episodes of pancreatitis in the past. She did have an episode of emesis about 1 hour ago, but nausea. Patient History Medical History Eczema Surgical History Status post ORIF of fracture of ankle Comment: Past medical history: Alcohol dependence Prior episodes of pancreatitis Eczema Class 2 obesity Family history: Mother had breast cancer a decade ago Father is currently ill with a brain cyst which was initially diagnosed in 2017 but has now grown caused hemiplegia and seizure Family & Social History Social History: household members significant other Prior Living Arrangements Apartment/Condo Safety & Behavioral: Feels Safe in Current Yes Environment Been Physically Hurt or No Threatened By a Person Tobacco & Substance use: Smoking Status Current every day smoker Smoking packs per day 1 alcohol intake frequency 3 or more drinks per day Substance Use Type marijuana Comment: Social history: Patient smokes 1 pack of tobacco daily. She states her last episode of pancreatitis occurred around . She quit alcohol at that time. However last month when her father's diagnosis became more severe she drank a 5th of alcohol in the weekend. She has not had any alcohol since then up until 2 days ago when she drank a beer. 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 Meds Home Medications and Allergies Home Medications Medication Instructions Recorded Confirmed Type No Known Home Medications 04/30/22 04/30/22 History Allergies Allergy/AdvReac Type Severity Reaction Status Date / Time shellfish derived Allergy Verified 04/30/22 11:54 Review of Systems Review of Systems Narrative: All other systems were reviewed negative Exam Vital Signs (past 8 hours): - 04/30/22 08:29 04/30/22 08:26 04/30/22 08:30 Temperature 99.9 F H Pulse Rate 93 H 99 H 77 Respiratory Rate 28 H Blood Pressure 187/122 H Pulse Oximetry 99 97 97 Oxygen Delivery Method Room Air Oxygen Flow Rate 04/30/22 08:40 04/30/22 08:40 04/30/22 09:00 Temperature Pulse Rate 75 Respiratory Rate Blood Pressure 187/122 H 196/131 H Pulse Oximetry 92 Oxygen Delivery Method Oxygen Flow Rate 04/30/22 09:00 04/30/22 09:30 04/30/22 09:30 Temperature Pulse Rate 79 66 Respiratory Rate Blood Pressure 206/123 H Pulse Oximetry 96 97 Oxygen Delivery Method Oxygen Flow Rate 04/30/22 09:39 04/30/22 09:39 04/30/22 10:00 Temperature Pulse Rate 77 Respiratory Rate Blood Pressure 200/120 H 188/107 H Pulse Oximetry 94 Oxygen Delivery Method Oxygen Flow Rate 04/30/22 10:00 04/30/22 10:30 04/30/22 10:30 Temperature Pulse Rate 66 77 Respiratory Rate Blood Pressure 188/124 H Pulse Oximetry 90 L 94 Oxygen Delivery Method Oxygen Flow Rate 04/30/22 10:50 04/30/22 10:50 04/30/22 11:00 Temperature Pulse Rate 72 Respiratory Rate Blood Pressure 201/128 H 194/126 H Pulse Oximetry 97 Oxygen Delivery Method Oxygen Flow Rate 04/30/22 11:00 04/30/22 11:30 04/30/22 11:50 Temperature Pulse Rate 69 Respiratory Rate Blood Pressure 206/123 H Pulse Oximetry 96 98 Oxygen Delivery Method Oxygen Flow Rate 04/30/22 11:50 04/30/22 12:44 Temperature Pulse Rate 73 62 Respiratory Rate 24 Blood Pressure 187/120 H Pulse Oximetry 95 96 Oxygen Delivery Method Oxygen Flow Rate 0 Oxygen Delivery Method Room Air Oxygen Flow Rate 0 Narrative Exam Narrative: GEN: Uncomfortable appearing adult female, flushed, Alert and oriented x3 HEENT: Normocephalic, face symmetric, pupils equal round reactive to light, extraocular movements intact, sclerae anicteric, conjunctiva clear, nares patent, oropharynx reveals an intact soft and hard palate with moist mucous membranes, dentition is poor NECK: Supple, no lymphadenopathy, thyroid without enlargement or nodularity, carotids no bruits CHEST: Respiratory excursions symmetric, clear to auscultation bilaterally CV: Regular rate and rhythm, no murmurs, rubs, gallops, PMI cannot be palpated ABD: Soft, diffusely tender, worst in the epigastrium, nondistended, bowel sounds present in all 4 quadrants, body habitus limits exam EXTR: Warm, well perfused, no clubbing/cyanosis/edema SKIN: Warm and dry, without rash NEURO: Alert and oriented x3, cranial nerves 2 through 12 are intact and symmetric bilaterally, motor strength 5/5 throughout, sensation intact throughout PSYCH: Mood and affect is within normal limits, judgment and insight are appropriate Objective Labs Result Diagrams: 04/30/22 08:31 04/30/22 08:31 Labs: Laboratory Results - last 24 hr 04/30/22 04/30/22 04/30/22 08:31 08:31 09:46 WBC 10.9 RBC 4.78 Hgb 16.6 H Hct 46.5 H MCV 97.2 MCH 34.6 H MCHC 35.6 RDW 15.6 H Plt Count 246 Neut % (Auto) 65.4 Lymph % (Auto) 26.2 [place] % (Auto) 5.2 Eos % (Auto) 2.4 Baso % (Auto) 0.8 Neut # (Auto) 7100 H Lymph # (Auto) 2900 [place] # (Auto) 600 Eos # (Auto) 300 Baso # (Auto) 100 Sodium 134 L Potassium 3.6 Chloride 98 Carbon Dioxide 18 L BUN 14 Creatinine 0.72 Estimated GFR > 60 BUN/Creatinine Ratio 19.4 Glucose 215 H Calcium 9.4 Total Bilirubin 1.5 H AST 64 H ALT 66 H Alkaline Phosphatase 88 Total Creatine Kinase 50 CK-MB (CK-2) TNP CK-MB (CK-2) Rel Index TNP Troponin I < 0.012 Total Protein 8.6 H Albumin 5.2 H Globulin 3.4 Albumin/Globulin Ratio 1.5 Lipase 9392 H SARS-CoV-2 (PCR) Negative Assessment & Plan Assessment & Plan narrative: 1. Acute pancreatitis Patient has had prior episodes of pancreatitis 5-6 times in the past, last episode having been August of 2021. She had been abstaining from alcohol up until 1 month ago when she had 1 episode of drinking a 5th of alcohol. She then remained asymptomatic. She had a beer 2 days ago. She has been eating out more recently due to the stressors with her father's health. She states she has been eating fatty foods including steak and eggs. She does not recall any particular thing she ate yesterday that may have triggered her symptoms. No known history of triglyceride elevation. Will send a triglyceride level. No evidence of gallstones or biliary obstruction on abdominal ultrasound. Will admit for bowel rest, IV fluids, and analgesia. Will trend lipase and CRP. 2. Hyperglycemia Blood sugar was 215 on arrival. She has no documented history of diabetes though does have risk factors secondary to her BMI. Will place on fingersticks and sliding scale. 3. Transaminitis Mild. Likely secondary to hepatic steatosis and pancreatitis. No evidence of biliary obstruction by CT. 4. Alcohol dependence Presently drinking episodically. No evidence for withdrawal but will place on withdrawal protocol. 5. Lung nodule seen on abdominal CT Will need a dedicated chest CT especially given her tobacco use. 6. Elevated blood pressures Might be pain related. Given her episodic drinking, it is less likely that this is reflective of alcohol withdrawal. She has no known history of hypertension. Will monitor blood pressures as her pain is better controlled. Code status Full per patient Prophylaxis Low Kai score Disposition Admit to inpatient care for management of pancreatitis symptoms Time Spent With Patient Critical Care time: I spent a total of [] minutes of critical care time on this patient's care today; this time is exclusive of procedural time. Quality VTE Deep Vein Thrombosis/Pulmonary Embolism Present on Admission: No
[2022-04-30 17:45] LABS: Add Manual Diff / Slide Review NO; Basophils Absolute Auto 0 /uL (0-100); Basophils Percent Auto 0.4 % (0-2); Eosinophils Absolute Auto 0 /uL (0-450); Eosinophils Percent Auto 0.4 % (2-4); Hemoglobin 15.5 g/dL (12.0-16.0); Lymphocytes Absolute Auto 800 /uL (1100-4500); Lymphocytes Percent Auto 9.4 % (25-40); Mean Corpuscular HGB Conc 35.9 % (30-36); Mean Corpuscular Volume 97.5 fL (80-100); Monocytes Absolute Auto 400 /uL (0-900); Monocytes Percent Auto 4.2 % (3-14); Neutrophils Absolute Auto 7500 /uL (1500-7000); Neutrophils Percent Auto 85.6 % (50-75); Platelet Count 182 X10^3/uL (150-400); Red Blood Cell Count 4.41 X10^6/uL (4.0-5.2); Red Cell Distribution Width 15.3 % (11.6-14.8); White Blood Cell Count 8.7 X10^3/uL (4.5-11.0)
[2022-04-30] MEDS: LACTATED RINGERS 1,000 ML 100 ML IV (17:54)
[2022-04-30 18:12] LABS: BUN Creatinine Ratio 22.4 (6-22); Blood Urea Nitrogen 11 mg/dL (7-17); Carbon Dioxide 23 mmol/L (22-32); Chloride 98 mmol/L (98-107); Estimated Glomerular Filt Rate > 60 mL/min (>60); Glucose 129 mg/dL (70-100); HEMOLYSIS 47 (0-50); Magnesium 1.2 mg/dL (1.6-2.3); Potassium 4.4 mmol/L (3.4-5.1); Sodium 130 mmol/L (137-145); Triglycerides 160 mg/dL (35-150)
[2022-04-30 18:38] LABS: Lipase 4128 U/L (23-300)
[2022-04-30] MEDS: diazePAM 10 MG/2 ML SYRINGE 5 MG IV (20:42)
[2022-04-30 22:41] LABS: C-Reactive Protein Quant 1.1 mg/dL (<1.0)
[2022-05-01] MEDS: HYDROMORPHONE 1 MG INJ IV ×6 (00:33→21:51)
[2022-05-01 03:12] VITALS: BP 152/51; PULSE 73; RESP 18; TEMP 36.4; O2SAT 97
[2022-05-01] MEDS: LACTATED RINGERS 1,000 ML 100 ML IV ×2 (04:20→16:54)
[2022-05-01] MEDS: MAGNESIUM SULFATE 2 GM/50 ML PIGGYBACK IV (06:47)
[2022-05-01 07:44] LABS: C-Reactive Protein Quant 4.3 mg/dL (<1.0)
[2022-05-01 08:00] VITALS: BP 144/92; PULSE 91; RESP 20; TEMP 35.8; O2SAT 95
[2022-05-01 08:17] LABS: Lipase 6192 U/L (23-300)
--- NOTE | 2022-05-01 08:34 | PC.NURSE ---
Addendum entered by Katerin Zamorano R.N. 05/01/22 19:17: Patients CIWA score at 1900 5. Patient is comfortable and resting comfortably. Tolerated apple juice well. Addendum entered by Katerin Zamorano R.N. 05/01/22 18:50: Patient in now on clear liquid diet, her blood sugars were 105, 95, and this evening 77. Tolerated some apple juice well. Resting comfortably after iv dilaudid given. Addendum entered by Katerin Zamorano R.N. 05/01/22 16:57: Patient is visibly sweating, with slight shakes. Otherwise she is sleeping. Given 1mg of iv dilaudid at 1230 and then oxycodone at 1330. Patient states that this has helped her. Door shut and new ivf bag hanging. Addendum entered by Katerin Zamorano R.N. 05/01/22 12:37: Patient just given another 1mg of iv dilaudid for complaints of pain 07/23. This RN took her ice chips away, as she was drinking the water instead of the ice. Patient also took her magnesium medication. She is lying supine and comfortable. Addendum entered by Katerin Zamorano R.N. 05/01/22 10:26: Oxycodone given to patient ineffective for pain control after 30 minutes of giving. Patient given 1mg of iv dilaudid and helpful. She is resting now. Original Note: Assess- Patient is alert and oriented x3, she is clammy and sweating but no other symptoms of withdrawal are noted. Patient is pleasant and a sba to the bathroom with iv pole. She is resting comfortably. To give patient some iv medication soon.
[2022-05-01] MEDS: THIAMINE 100 MG TABLET PO (08:59)
[2022-05-01] MEDS: MULTIVITAMIN 1 TABLET 1 TAB PO (08:59)
[2022-05-01] MEDS: OXYCODONE IR 5 MG TABLET PO ×3 (08:59→19:59)
[2022-05-01] MEDS: PANTOPRAZOLE 40 MG VIAL IV (08:59)
[2022-05-01] MEDS: FOLIC ACID 1 MG TABLET PO (08:59)
--- NOTE | 2022-05-01 09:25 | CM.DANOTE ---
DCP: Case received, EMR reviewed and met with patient. Introduced self and role. Was able to obtain information regarding patient's baseline activity level and current living situation prior to admission. DCP assessment completed with information currently available. Patient is a 41 year old female who admitted yesterday morning to the care of the hospitalist sammie. PCP: [facility] (she is being assigned a different provider). Payer: confirmed: [employer] Patient came to the hospital via private vehicle secondary to increased abdominal pain. Patient has history of pancreatitis. She does drink on occasion. Patient has had an ill father, and had a couple of beers prior to admission, according to notes. Patient holds current diagnosis of acute pancreatitis, she has had increased lipase. Met with patient in her room. She is alert and oriented, independent at her baseline. She resides in [place] alone, has a local friend. 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 She has been stressed, due to her father's recent illness, and indicated that she did have a couple of drinks prior. Asked her about resource needs for alcohol, stated, I don't thin I need them, I only drank this time because of stress, but know that it's not good for me. Let her know that this [place] estate planner will be available should she decide upon resources. P: DCP to continue to follow for any needs or resources. Patient should be able to go home when she is deemed medically stable. Genevieve Esquivel RN/Electrical Appliance Preparer Discharge Planning/Care Management CM Discharge Assessment Start: 05/01/22 09:23 Freq: Status: Active Protocol: Document 05/01/22 09:23 (Rec: 05/01/22 09:25 [id number]) Discharge Planning Assessment Assigned Cna Pct Genevieve Esquivel RN/Electrical Appliance Preparer Advance Directives? No History Provided By Patient,Medical Record Prior Living Arrangements Apartment/Condo Household Members significant other Type of transporation used prior to Drives own vehicle admit Independent with ADL's Yes Is patient alert and oriented? Yes Caregiver for Another No Barriers to Discharge No Discharge Plan Home Transportation Arrangement Friend Referrals Initiated None needed Additional Comment Did discuss resources for alcohol Whiteboard Updated in Patient Room with Yes name and ext. # of Cna Pct Review Status In Process Next Review Type Continued Stay Review
[2022-05-01 12:00] VITALS: BP 134/84; PULSE 80; RESP 19; TEMP 36.8; O2SAT 97
[2022-05-01] MEDS: MAGNESIUM CHLORIDE 64 MG TABLET 128 MG PO ×2 (12:38→17:35)
--- NOTE | 2022-05-01 17:22 | PM.PN.1 ---
Subjective Subjective Date Patient Seen: 05/01/22 Interval history: 41-year-old female with alcohol dependence, prior pancreatitis, and history of eczema as well as prior ORIF of the ankle who presented to the emergency department today complaining of abdominal pain.? She has been drinking minimally but did have 1 beer 2 days prior to admission. Today, she reports her pain is better, but not quite as good as she'd hoped. Prior episodes of pancreatitis improved fairly rapidly. No nausea today. Would like to trial clear liquids. Exam Vital Signs (past 8 hours): - 05/01/22 12:00 Temperature 98.3 F Pulse Rate 80 Respiratory Rate 19 Blood Pressure 134/84 Pulse Oximetry 97 Oxygen Flow Rate 0 Oxygen Delivery Method Room Air Oxygen Flow Rate 0 Narrative Exam Narrative: GEN:? Uncomfortable appearing adult female, flushed, Alert and oriented x3 HEENT:? Normocephalic, face symmetric CHEST:? Respiratory excursions symmetric, clear to auscultation bilaterally CV:? Regular rate and rhythm, no murmurs, rubs, gallops, PMI cannot be palpated ABD:? Soft, diffusely tender, worst in the epigastrium, nondistended, bowel sounds present in all 4 quadrants, body habitus limits exam EXTR:? Warm, well perfused, no clubbing/cyanosis/edema SKIN:? Warm and dry, without rash NEURO:? Alert and oriented x3, grossly intact Objective Labs Result Diagrams: 04/30/22 17:34 04/30/22 17:34 Labs: Laboratory Results - last 24 hr 04/30/22 04/30/22 04/30/22 08:31 17:34 17:34 WBC 8.7 RBC 4.41 Hgb 15.5 Hct 43.0 MCV 97.5 MCH 35.0 H MCHC 35.9 RDW 15.3 H Plt Count 182 Neut % (Auto) 85.6 H D Lymph % (Auto) 9.4 L [place] % (Auto) 4.2 Eos % (Auto) 0.4 L Baso % (Auto) 0.4 Neut # (Auto) 7500 H Lymph # (Auto) 800 L [place] # (Auto) 400 Eos # (Auto) 0 Baso # (Auto) 0 Sodium 130 L Potassium 4.4 Chloride 98 Carbon Dioxide 23 BUN 11 Creatinine 0.49 L Estimated GFR > 60 BUN/Creatinine Ratio 22.4 H Glucose 129 H Calcium 8.0 L Magnesium 1.2 L C-Reactive Protein 1.1 H Triglycerides 160 H Lipase 4128 H D 05/01/22 05/01/22 06:41 06:41 WBC RBC Hgb Hct MCV MCH MCHC RDW Plt Count Neut % (Auto) Lymph % (Auto) [place] % (Auto) Eos % (Auto) Baso % (Auto) Neut # (Auto) Lymph # (Auto) [place] # (Auto) Eos # (Auto) Baso # (Auto) Sodium Potassium Chloride Carbon Dioxide BUN Creatinine Estimated GFR BUN/Creatinine Ratio Glucose Calcium Magnesium C-Reactive Protein 4.3 H Triglycerides Lipase 6192 H [facility] Medical History Eczema Surgical History Status post ORIF of fracture of ankle Social History household members: significant other Smoking Status: Current every day smoker Assessment & Plan Assessment & Plan narrative: 1. Acute pancreatitis Patient has had prior episodes of pancreatitis 5-6 times in the past, last episode having been August of 2021.? She had been abstaining from alcohol up until 1 month ago when she had 1 episode of drinking a 5th of alcohol.? She then remained asymptomatic.? She had a beer 2 days prior to admission.? She has been eating out more recently due to the stressors with her father's health.? She states she has been eating fatty foods including steak and eggs.? Triglycerides were 160. No evidence of gallstones or biliary obstruction on abdominal ultrasound.? Lipase mildly improved. CRP low. Will advance to clear liquids. 2. Hyperglycemia Blood sugar was 215 on arrival.?Now normalized. Likely d/t pancreatitis. 3. Transaminitis Mild.? Likely secondary to hepatic steatosis and pancreatitis.? No evidence of biliary obstruction by CT. 4. Alcohol dependence Presently drinking episodically.? No evidence for withdrawal, continue CIWA protocol. 5. Lung nodule seen on abdominal CT Will need a dedicated chest CT especially given her tobacco use. 6. Elevated blood pressures Normalized w/treatment of her pain Code status Full per patient Prophylaxis Low Kai score Disposition Home when tolerating oral pain meds and diet. Time Spent With Patient Critical Care time: I spent a total of [] minutes of critical care time on this patient's care today; this time is exclusive of procedural time. Quality VTE Deep Vein Thrombosis/Pulmonary Embolism Present on Admission: No
[2022-05-01 19:00] VITALS: O2SAT 96
[2022-05-01 19:50] VITALS: BP 130/84; PULSE 77; RESP 18; TEMP 36.2; O2SAT 96
[2022-05-02] VITALS (8 sets, daily range): BP systolic 122–143; BP diastolic 75–88; PULSE 76–88; RESP 16–20; TEMP 35.9–37; O2SAT 95–98
[2022-05-02] MEDS: HYDROMORPHONE 1 MG INJ IV ×8 (00:52→21:59)
--- NOTE | 2022-05-02 04:59 | P.PN_ITS ---
Subjective Subjective Date Patient Seen: 05/02/22 Time Patient Seen: 12:00 Interval history: Her today and tolerated clear liquids, however had belly pain relieved with Dilaudid. Wants to attempt to advance diet further to try to get home. Passing gas but has not had a BM since admission. Exam Vital Signs (past 8 hours): - 05/02/22 00:00 05/02/22 04:00 Temperature 97.5 F L 97.4 F L Pulse Rate 78 88 Respiratory Rate 18 18 Blood Pressure 127/83 134/83 Pulse Oximetry 98 96 Oxygen Flow Rate 0 0 Oxygen Delivery Method Room Air Oxygen Flow Rate 0 Narrative Exam Narrative: GEN:? Uncomfortable appearing adult female, flushed, Alert and oriented x3 HEENT:? Normocephalic, face symmetric CHEST:? Respiratory excursions symmetric, clear to auscultation bilaterally CV:? Regular rate and rhythm, no murmurs, rubs, gallops, PMI cannot be palpated ABD:? Soft, diffusely tender, worst in the epigastrium, nondistended, bowel sounds present in all 4 quadrants, body habitus limits exam EXTR:? Warm, well perfused, no clubbing/cyanosis/edema SKIN:? Warm and dry, without rash NEURO:? Alert and oriented x3, grossly intact Objective Labs Result Diagrams: 05/02/22 06:11 05/02/22 06:11 Labs: Laboratory Results - last 24 hr 05/01/22 05/01/22 06:41 06:41 C-Reactive Protein 4.3 H Lipase 6192 H ON LICENSE OF [facility] Medical History Eczema Surgical History Status post ORIF of fracture of ankle Social History household members: significant other Smoking Status: Current every day smoker Assessment & Plan Assessment & Plan narrative: 1. Acute pancreatitis Patient has had prior episodes of pancreatitis 5-6 times in the past, last episode having been August of 2021.? She had been abstaining from alcohol up until 1 month ago when she had 1 episode of drinking a 5th of alcohol.? She then remained asymptomatic.? She had a beer 2 days prior to admission.? She has been eating out more recently due to the stressors with her father's health.? She states she has been eating fatty foods including steak and eggs.? Triglycerides were 160. No evidence of gallstones or biliary obstruction on abdominal ultrasound.? Lipase mildly improved. CRP low. -tolerating clears so will advance to mechanical soft diet today -stressed that patient cannot go home while still requiring IV Dilaudid 2. Hyperglycemia Blood sugar was 215 on arrival.?Now normalized. Likely d/t pancreatitis. 3. Transaminitis Mild.? Likely secondary to hepatic steatosis and pancreatitis.? No evidence of biliary obstruction by CT. 4. Alcohol dependence Presently drinking episodically.? No evidence for withdrawal, continue CIWA protocol. 5. Lung nodule seen on abdominal CT Will need a dedicated chest CT especially given her tobacco use. 6. Elevated blood pressures Normalized w/treatment of her pain 7. Hypokalemia, not present on admission -replete and monitor Code status Full per patient Prophylaxis Low Kai score Disposition Home when tolerating oral pain meds and diet. Hopefully 05/03. Time Spent With Patient Critical Care time: I spent a total of [] minutes of critical care time on this patient's care today; this time is exclusive of procedural time. Quality VTE Deep Vein Thrombosis/Pulmonary Embolism Present on Admission: No
[2022-05-02 06:25] LABS: Add Manual Diff / Slide Review NO; Basophils Absolute Auto 0 /uL (0-100); Basophils Percent Auto 0.5 % (0-2); Eosinophils Absolute Auto 400 /uL (0-450); Eosinophils Percent Auto 4.1 % (2-4); Hemoglobin 13.6 g/dL (12.0-16.0); Lymphocytes Absolute Auto 1300 /uL (1100-4500); Lymphocytes Percent Auto 15.4 % (25-40); Mean Corpuscular HGB Conc 34.7 % (30-36); Mean Corpuscular Hemoglobin 34.4 PG (26-34); Mean Corpuscular Volume 99.2 fL (80-100); Monocytes Absolute Auto 500 /uL (0-900); Monocytes Percent Auto 5.3 % (3-14); Neutrophils Absolute Auto 6500 /uL (1500-7000); Neutrophils Percent Auto 74.7 % (50-75); Platelet Count 159 X10^3/uL (150-400); Red Blood Cell Count 3.94 X10^6/uL (4.0-5.2); Red Cell Distribution Width 15.3 % (11.6-14.8); White Blood Cell Count 8.7 X10^3/uL (4.5-11.0)
[2022-05-02 06:36] LABS: Alanine Aminotransferase 40 IU/L (<35); Albumin 3.6 g/dL (3.5-5.0); Albumin Globulin Ratio 1.3 (1.0-2.8); Alkaline Phosphatase 63 U/L (38-126); Aspartate Aminotransferase 40 IU/L (14-36); BUN Creatinine Ratio 13.7 (6-22); Blood Urea Nitrogen 7 mg/dL (7-17); Calcium 7.5 mg/dL (8.4-10.2); Carbon Dioxide 23 mmol/L (22-32); Chloride 97 mmol/L (98-107); Estimated Glomerular Filt Rate > 60 mL/min (>60); Globulin 2.8 g/dL (1.7-4.1); Glucose 107 mg/dL (70-100); HEMOLYSIS < 15 (0-50); Magnesium 1.9 mg/dL (1.6-2.3); Potassium 3.4 mmol/L (3.4-5.1); Sodium 130 mmol/L (137-145); Total Protein 6.4 g/dL (6.3-8.2)
[2022-05-02 06:51] LABS: C-Reactive Protein Quant 15.5 mg/dL (<1.0); Lipase 3495 U/L (23-300)
[2022-05-02] MEDS: MAGNESIUM SULFATE 2 GM/50 ML PIGGYBACK IV (07:58)
[2022-05-02] MEDS: PANTOPRAZOLE 40 MG VIAL IV (08:06)
[2022-05-02] MEDS: FOLIC ACID 1 MG TABLET PO (08:06)
[2022-05-02] MEDS: THIAMINE 100 MG TABLET PO (08:06)
[2022-05-02] MEDS: MULTIVITAMIN 1 TABLET 1 TAB PO (08:06)
[2022-05-02] MEDS: OXYCODONE IR 5 MG TABLET PO ×4 (08:12→23:39)
[2022-05-02] MEDS: POTASSIUM CHLORIDE 20 MEQ TAB 40 MEQ PO (09:28)
[2022-05-02] MEDS: LACTATED RINGERS 1,000 ML 100 ML IV ×2 (12:50→18:09)
[2022-05-02] MEDS: ACETAMINOPHEN 325 MG TABLET 650 MG PO (17:03)
[2022-05-02] MEDS: LACTATED RINGERS 1,000 ML 200 ML IV (23:06)
[2022-05-03] VITALS (8 sets, daily range): BP systolic 130–155; BP diastolic 77–94; PULSE 76–87; RESP 16–18; TEMP 35.3–36.7; O2SAT 96–98
[2022-05-03] MEDS: HYDROMORPHONE 1 MG INJ IV ×8 (01:12→22:07)
[2022-05-03] MEDS: LACTATED RINGERS 1,000 ML 200 ML IV ×4 (04:00→21:36)
[2022-05-03] MEDS: PANTOPRAZOLE DR 40 MG TABLET PO (05:49)
[2022-05-03] MEDS: OXYCODONE IR 5 MG TABLET PO ×3 (05:49→21:36)
[2022-05-03 06:43] LABS: Magnesium 1.9 mg/dL (1.6-2.3)
[2022-05-03 06:44] LABS: Alanine Aminotransferase 37 IU/L (<35); Albumin 3.5 g/dL (3.5-5.0); Albumin Globulin Ratio 1.3 (1.0-2.8); Alkaline Phosphatase 71 U/L (38-126); Aspartate Aminotransferase 40 IU/L (14-36); BUN Creatinine Ratio 7.4 (6-22); Blood Urea Nitrogen 4 mg/dL (7-17); Calcium 7.7 mg/dL (8.4-10.2); Carbon Dioxide 23 mmol/L (22-32); Chloride 100 mmol/L (98-107); Estimated Glomerular Filt Rate > 60 mL/min (>60); Globulin 2.8 g/dL (1.7-4.1); Glucose 98 mg/dL (70-100); HEMOLYSIS < 15 (0-50); Potassium 3.8 mmol/L (3.4-5.1); Sodium 131 mmol/L (137-145); Total Protein 6.3 g/dL (6.3-8.2)
[2022-05-03] MEDS: ACETAMINOPHEN 325 MG TABLET 650 MG PO (09:20)
[2022-05-03] MEDS: MULTIVITAMIN 1 TABLET 1 TAB PO (09:21)
[2022-05-03] MEDS: FOLIC ACID 1 MG TABLET PO (09:21)
[2022-05-03] MEDS: THIAMINE 100 MG TABLET PO (09:21)
--- NOTE | 2022-05-03 16:15 | PM.PN.1 ---
Subjective Subjective Date Patient Seen: 05/03/22 Time Patient Seen: 11:00 Interval history: Still having a good amount of epigastric abdominal pain but able to eat this morning. Wants to try cottage cheese. However has been requiring 1 mg of Dilaudid every 3 hours consistently. Exam Vital Signs (past 8 hours): - 05/03/22 09:15 05/03/22 09:00 05/03/22 13:00 Temperature 95.6 F L 96.1 F L Pulse Rate 87 77 Respiratory Rate 18 16 Blood Pressure 131/81 155/94 H Pulse Oximetry 97 97 98 Oxygen Delivery Method Room Air Oxygen Flow Rate 0 0 0 05/03/22 15:31 Temperature 96.8 F L Pulse Rate 80 Respiratory Rate 18 Blood Pressure 130/94 H Pulse Oximetry 98 Oxygen Delivery Method Oxygen Flow Rate 0 Oxygen Delivery Method Room Air Oxygen Flow Rate 0 Narrative Exam Narrative: GEN:? Uncomfortable appearing adult female, flushed, Alert and oriented x3 HEENT:? Normocephalic, face symmetric CHEST:? Respiratory excursions symmetric, clear to auscultation bilaterally CV:? Regular rate and rhythm, no murmurs, rubs, gallops, PMI cannot be palpated ABD:? Soft, diffusely tender, worst in the epigastrium, nondistended, bowel sounds present in all 4 quadrants, body habitus limits exam EXTR:? Warm, well perfused, no clubbing/cyanosis/edema SKIN:? Warm and dry, without rash NEURO:? Alert and oriented x3, grossly intact Objective Labs Result Diagrams: 05/02/22 06:11 05/03/22 06:07 Labs: Laboratory Results - last 24 hr 05/03/22 05/03/22 06:07 06:07 Sodium 131 L Potassium 3.8 Chloride 100 Carbon Dioxide 23 BUN 4 L Creatinine 0.54 Estimated GFR > 60 BUN/Creatinine Ratio 7.4 Glucose 98 Calcium 7.7 L Magnesium 1.9 Total Bilirubin 1.0 AST 40 H ALT 37 H Alkaline Phosphatase 71 Total Protein 6.3 Albumin 3.5 Globulin 2.8 Albumin/Globulin Ratio 1.3 PFSH Medical History Eczema Surgical History Status post ORIF of fracture of ankle Social History household members: significant other Smoking Status: Current every day smoker Assessment & Plan Assessment & Plan narrative: 1. Acute pancreatitis Patient has had prior episodes of pancreatitis 5-6 times in the past, last episode having been August of 2021.? She had been abstaining from alcohol up until 1 month ago when she had 1 episode of drinking a 5th of alcohol.? She then remained asymptomatic.? She had a beer 2 days prior to admission.? She has been eating out more recently due to the stressors with her father's health.? She states she has been eating fatty foods including steak and eggs.? Triglycerides were 160. No evidence of gallstones or biliary obstruction on abdominal ultrasound.? Lipase mildly improved. CRP low. -advanced diet to mech soft but patient still having abd pain requiring IV dilaudid q3h -stressed that patient cannot go home while still requiring IV Dilaudid 2. Hyperglycemia Blood sugar was 215 on arrival.?Now normalized. Likely d/t pancreatitis. 3. Transaminitis, stable Mild.? Likely secondary to hepatic steatosis and pancreatitis.? No evidence of biliary obstruction by CT. 4. Alcohol dependence Presently drinking episodically.? No evidence for withdrawal, continue CIWA protocol. -encouraged cessation 5. Lung nodule seen on abdominal CT Will need a dedicated chest CT especially given her tobacco use. 6. Elevated blood pressures Normalized w/treatment of her pain 7. Hypokalemia, not present on admission -replete and monitor Code status Full per patient Prophylaxis Low Kai score Disposition Home when tolerating oral pain meds and diet. Hopefully 05/04. Time Spent With Patient Critical Care time: I spent a total of [] minutes of critical care time on this patient's care today; this time is exclusive of procedural time. Quality VTE Deep Vein Thrombosis/Pulmonary Embolism Present on Admission: No
[2022-05-03] MEDS: polyethylene glycoL 3350 17 GM POWD.PACK PO (16:25)
[2022-05-03] MEDS: SENNOSIDES 8.6 MG TABLET PO (16:25)
[2022-05-04] VITALS: BP 156/94; PULSE 82; RESP 18; TEMP 36.6; O2SAT 95
[2022-05-04] MEDS: OXYCODONE IR 5 MG TABLET PO ×3 (00:06→05:44)
[2022-05-04] MEDS: HYDROMORPHONE 1 MG INJ IV ×3 (00:55→06:25)
[2022-05-04 04:00] VITALS: BP 150/90; PULSE 77; RESP 18; TEMP 36.7; O2SAT 95
[2022-05-04] MEDS: LACTATED RINGERS 1,000 ML 200 ML IV (04:01)
[2022-05-04] MEDS: PANTOPRAZOLE DR 40 MG TABLET PO (05:44)
[2022-05-04 07:02] LABS: Lipase 696 U/L (23-300)
[2022-05-04 07:04] LABS: Alanine Aminotransferase 44 IU/L (<35); Albumin 3.7 g/dL (3.5-5.0); Albumin Globulin Ratio 1.3 (1.0-2.8); Alkaline Phosphatase 83 U/L (38-126); Aspartate Aminotransferase 45 IU/L (14-36); BUN Creatinine Ratio 7.4 (6-22); Bilirubin Total 0.8 mg/dL (0.2-1.3); Blood Urea Nitrogen 4 mg/dL (7-17); Calcium 8.6 mg/dL (8.4-10.2); Carbon Dioxide 25 mmol/L (22-32); Chloride 99 mmol/L (98-107); Estimated Glomerular Filt Rate > 60 mL/min (>60); Globulin 2.9 g/dL (1.7-4.1); Glucose 92 mg/dL (70-100); HEMOLYSIS < 15 (0-50); Potassium 3.7 mmol/L (3.4-5.1); Sodium 132 mmol/L (137-145); Total Protein 6.6 g/dL (6.3-8.2)
[2022-05-04 07:48] VITALS: BP 149/104; PULSE 76; RESP 18; TEMP 36.4; O2SAT 98
--- NOTE | 2022-05-04 08:01 | P.PN_ITS ---
Exam Vital Signs (past 8 hours): - 05/04/22 04:00 05/04/22 07:48 Temperature 98.0 F 97.5 F L Pulse Rate 77 76 Respiratory Rate 18 18 Blood Pressure 150/90 H 149/104 H Pulse Oximetry 95 98 Oxygen Flow Rate 0 0 Oxygen Delivery Method Room Air Oxygen Flow Rate 0 Narrative Exam Narrative: GEN:? Uncomfortable appearing adult female, flushed, Alert and oriented x3 HEENT:? Normocephalic, face symmetric CHEST:? Respiratory excursions symmetric, clear to auscultation bilaterally CV:? Regular rate and rhythm, no murmurs, rubs, gallops, PMI cannot be palpated ABD:? Soft, diffusely tender, worst in the epigastrium, nondistended, bowel sounds present in all 4 quadrants, body habitus limits exam EXTR:? Warm, well perfused, no clubbing/cyanosis/edema SKIN:? Warm and dry, without rash NEURO:? Alert and oriented x3, grossly intact Objective Labs Result Diagrams: 05/02/22 06:11 05/04/22 06:30 Labs: Laboratory Results - last 24 hr 05/04/22 05/04/22 06:30 06:30 Sodium 132 L Potassium 3.7 Chloride 99 Carbon Dioxide 25 BUN 4 L Creatinine 0.54 Estimated GFR > 60 BUN/Creatinine Ratio 7.4 Glucose 92 Calcium 8.6 Total Bilirubin 0.8 AST 45 H ALT 44 H Alkaline Phosphatase 83 Total Protein 6.6 Albumin 3.7 Globulin 2.9 Albumin/Globulin Ratio 1.3 Lipase 696 H D [facility] Medical History Eczema Surgical History Status post ORIF of fracture of ankle Social History household members: significant other Smoking Status: Current every day smoker Assessment & Plan Assessment & Plan narrative: 1. Acute pancreatitis Patient has had prior episodes of pancreatitis 5-6 times in the past, last episode having been August of 2021.? She had been abstaining from alcohol up until 1 month ago when she had 1 episode of drinking a 5th of alcohol.? She then remained asymptomatic.? She had a beer 2 days prior to admission.? She has been eating out more recently due to the stressors with her father's health.? She states she has been eating fatty foods including steak and eggs.? Triglycerides were 160. No evidence of gallstones or biliary obstruction on abdominal ultrasound.? Lipase mildly improved. CRP low. -advanced diet to [facility] soft but patient still having abd pain requiring IV dilaudid q3h -stressed that patient cannot go home while still requiring IV Dilaudid 2. Hyperglycemia Blood sugar was 215 on arrival.?Now normalized. Likely d/t pancreatitis. 3. Transaminitis, stable Mild.? Likely secondary to hepatic steatosis and pancreatitis.? No evidence of biliary obstruction by CT. 4. Alcohol dependence Presently drinking episodically.? No evidence for withdrawal, continue CIWA protocol. -encouraged cessation 5. Lung nodule seen on abdominal CT Will need a dedicated chest CT especially given her tobacco use. 6. Elevated blood pressures Normalized w/treatment of her pain 7. Hypokalemia, not present on admission -replete and monitor Code status Full per patient Prophylaxis Low Kai score Disposition Home when tolerating oral pain meds and diet. Hopefully 05/04. Time Spent With Patient Critical Care time: I spent a total of [] minutes of critical care time on this patient's care today; this time is exclusive of procedural time. Quality VTE Deep Vein Thrombosis/Pulmonary Embolism Present on Admission: No
[2022-05-04 08:05] VITALS: O2SAT 98
--- NOTE | 2022-05-04 10:07 | PC.NURSE ---
Day shift: Pt left unit at approx 1005. Paperwork signed and all questions answered. Pt has all personal belongings. NO new MD scripts. Pt wanted to walk to her friends car this AM. Her friend is driving Pt home. Pt does report My Father needs me home now. Pt did tolerated breakfast this AM.
--- NOTE | 2022-05-04 10:14 | PM.DS.1 ---
History of Present Illness History of Present Illness Date Patient Seen: 05/04/22 Time Patient Seen: 10:00 Chief complaint: pancreas Narrative: 41-year-old female with alcohol dependence, prior pancreatitis, and history of eczema as well as prior ORIF of the ankle who presented to the emergency department today complaining of abdominal pain.? She has been drinking minimally but did have 1 beer 2 days prior to admission.? She woke up this morning, got in the shower and when bending down to shave, she developed severe epigastric pain.? She was sweaty and nauseated as well as vomiting.? Reports this felt very similar to her previous episode of pancreatitis.? In the ED she was noted to have a low-grade fever of 99.9, it was tachycardic to 99 and blood pressure was 187/122.? Blood pressure subsequently increased to 206/123.? Labs revealed a white blood cell count of 10.9, hemoglobin 16.6, hematocrit 46.5, platelets 246.? Chemistry panel revealed a sodium 134 potassium 3.6 creatinine 0.72, glucose of 215.? LFTs revealed an AST of 64, ALT 66, alk-phos was normal at 88, total bilirubin 1.5.? Troponin was negative.? Lipase 9392.? COVID was negative.? She was given IV fluids, IV Dilaudid, and abdominal ultrasound was performed which revealed hepatomegaly with hepatic steatosis.? Difficult visualization of the pancreas.? Subsequently she Underwent CT of the abdomen and pelvis which revealed acute pancreatitis without pancreatic necrosis, pseudocyst or duct dilatation.? Hepatomegaly was noted as well as severe hepatic steatosis.? There is partial visualization of a 0.6 cm nodule in the right upper lobe with recommendation for follow-up chest CT.? Admission was recommended for management of her pancreatitis. Patient is currently complaining of fairly severe abdominal pain.? She states this episode is different from prior.? She states she has probably had fiber 6 episodes of pancreatitis in the past.? She did have an episode of emesis about 1 hour ago, but nausea. Discharge Providers Provider Date of admission: 04/30/22 11:29 Discharge Date: 05/04/22 Discharge provider: Bharathi García DO Summary Hospital Course Discharge Diagnosis: 1. Acute pancreatitis Patient has had prior episodes of pancreatitis 5-6 times in the past, last episode having been August of 2021.? She had been abstaining from alcohol up until 1 month ago when she had 1 episode of drinking a 5th of alcohol.? She then remained asymptomatic.? She had a beer 2 days prior to admission.? She has been eating out more recently due to the stressors with her father's health.? She states she has been eating fatty foods including steak and eggs.? Triglycerides were 160.? No evidence of gallstones or biliary obstruction on abdominal ultrasound.? Lipase initially 9392. CRP low.? -advanced diet to mech soft -able to tolerate po pain meds -lipase decreased to 696 -abd pain improving 2. Hyperglycemia Blood sugar was 215 on arrival.?Now normalized.? Likely d/t pancreatitis. 3. Transaminitis, stable Mild.? Likely secondary to hepatic steatosis and pancreatitis.? No evidence of biliary obstruction by CT. 4. Alcohol dependence Presently drinking episodically.? No evidence for withdrawal, continue CINE protocol. -encouraged cessation 5. Lung nodule seen on abdominal CT Will need a dedicated chest CT especially given her tobacco use. 6. Elevated blood pressures Normalized w/treatment of her pain 7. Hypokalemia, not present on admission -replete and monitor Hospital Course: 41-year-old female with alcohol dependence, prior pancreatitis, and history of eczema as well as prior ORIF of the ankle who presented to the emergency department complaining of abdominal pain.? She has been drinking minimally but did have 1 beer 2 days prior to admission.? Lipase is found to be [address] abdomen showing pancreatitis. Abdominal ultrasound showed no evidence of gallbladder stone or biliary dilatation. She was placed on IV fluids, IV pain medications and made NPO. She slowly advanced her diet to mechanical soft and her pain was somewhat manageable with oral medications. She wanted to discharge home badly to take care of her father and had no other symptoms than chest pain so she was discharged home. She denied home prescriptions for pain medications. Exam Vital Signs (past 8 hours): - 05/04/22 04:00 05/04/22 07:48 05/04/22 08:05 Temperature 98.0 F 97.5 F L Pulse Rate 77 76 Respiratory Rate 18 18 Blood Pressure 150/90 H 149/104 H Pulse Oximetry 95 98 98 Oxygen Delivery Method Room Air Oxygen Flow Rate 0 0 Oxygen Delivery Method Room Air Oxygen Flow Rate 0 Narrative Exam Narrative: GEN:? Adult female, flushed, Alert and oriented x3 HEENT:? Normocephalic, face symmetric CHEST:? Respiratory excursions symmetric, clear to auscultation bilaterally CV:? Regular rate and rhythm, no murmurs, rubs, gallops, PMI cannot be palpated ABD:? Soft, abdominal tender improved, bowel sounds present in all 4 quadrants, body habitus limits exam EXTR:? Warm, well perfused, no clubbing/cyanosis/edema SKIN:? Warm and dry, without rash NEURO:? Alert and oriented x3, grossly intact Objective Labs Result Diagrams: 05/02/22 06:11 05/04/22 06:30 Labs: Laboratory Results - last 24 hr 05/04/22 05/04/22 06:30 06:30 Sodium 132 L Potassium 3.7 Chloride 99 Carbon Dioxide 25 BUN 4 L Creatinine 0.54 Estimated GFR > 60 BUN/Creatinine Ratio 7.4 Glucose 92 Calcium 8.6 Total Bilirubin 0.8 AST 45 H ALT 44 H Alkaline Phosphatase 83 Total Protein 6.6 Albumin 3.7 Globulin 2.9 Albumin/Globulin Ratio 1.3 Lipase 696 H D PFSH Medical History Eczema Surgical History Status post ORIF of fracture of ankle Social History household members: significant other Smoking Status: Current every day smoker Discharge Plan Discharge Plan Patient Disposition: Home Discharge orders & Medications Prescriptions: Continued No Known Home Medications Visit Report/Discharge Packet Instructions: Acute Pancreatitis, DI for Pancreatitis Quality VTE Deep Vein Thrombosis/Pulmonary Embolism Present on Admission: No
--- NOTE | 2022-05-04 13:49 | CM.DPC ---
DCP Cont: Per MD, pt is medically stable to discharge today. Pt discharged home this morning via POV. Kelly Bahena RN/DCP
== END 2022-05-04 10:08 | disposition home or self-care (01) | DRG 282 ==
LOC: ED 08:26 → AC 11:30
PROVIDERS: Student in an Organized Health Care Education/Training Program; Admitting Provider Family Medicine; Emergency Provider Emergency Medicine; Referring Provider Emergency Medicine; Visit Provider Family Medicine
DX: K85.90 Acute pancreatitis without necrosis or infection, unspecified (principal); R73.9 Hyperglycemia, unspecified; F10.20 Alcohol dependence, uncomplicated; R74.01 Elevation of levels of liver transaminase levels; R91.1 Solitary pulmonary nodule; Z20.822 Contact with and (suspected) exposure to COVID-19; K76.0 Fatty (change of) liver, not elsewhere classified
CPT/HCPCS: 36415; 71045; 74177; 76705; 80048; 80053; 82550; 82962; 83690; 83735; 84478; 84484; 85025; 86140; 87635; 93005; 93010; 96361; 96374; 96375; 96376; 99284; C9803; C9113; J1170; J1815; J1885; J2405; J3360; J3475